=== PATIENT | male | born 1975 | race Caucasian/White ===

== ENCOUNTER 2017-02-14 14:05 | Outpatient (CLI) | payer OTHER | END 2017-02-14 14:06 | disposition home or self-care (01) | LOC: SC 14:05 | PROVIDERS: ATTEND Specialist | DX: R53.83 Other fatigue (principal); R06.83 Snoring; R51 Headache; E66.9 Obesity, unspecified; Z68.32 Body mass index [BMI] 32.0-32.9, adult | CPT/HCPCS: 99205; 99212 ==

== ENCOUNTER 2017-04-04 22:11 | Outpatient (CLI) | payer OTHER | END 2017-04-04 22:12 | disposition home or self-care (01) | LOC: SC 22:11 | PROVIDERS: ATTEND Specialist | DX: G47.33 Obstructive sleep apnea (adult) (pediatric) (principal); G47.61 Periodic limb movement disorder | CPT/HCPCS: 95810 ==

== ENCOUNTER 2017-04-30 13:54 | Outpatient (CLI) | payer OTHER | END 2017-04-30 13:55 | disposition home or self-care (01) | LOC: SC 13:54 | PROVIDERS: ATTEND Internal Medicine Pulmonary Disease | DX: G47.33 Obstructive sleep apnea (adult) (pediatric) (principal) | CPT/HCPCS: 99212; 99213 ==

== ENCOUNTER 2017-06-16 19:23 | Outpatient (CLI) | payer OTHER | END 2017-06-16 19:24 | disposition home or self-care (01) | LOC: SC 19:23 | PROVIDERS: ATTEND Internal Medicine Pulmonary Disease | DX: G47.33 Obstructive sleep apnea (adult) (pediatric) (principal); G47.61 Periodic limb movement disorder | CPT/HCPCS: 95811 ==

== ENCOUNTER 2017-07-09 14:34 | Outpatient (CLI) | payer OTHER | END 2017-07-09 14:35 | disposition home or self-care (01) | LOC: SC 14:34 | PROVIDERS: ATTEND Nurse Practitioner Family | DX: G47.33 Obstructive sleep apnea (adult) (pediatric) (principal); G47.61 Periodic limb movement disorder | CPT/HCPCS: 99214 ==

== ENCOUNTER 2017-09-04 13:10 | Outpatient (CLI) | payer OTHER | END 2017-09-04 13:11 | disposition home or self-care (01) | LOC: SC 13:10 | PROVIDERS: ATTEND Nurse Practitioner Family | DX: G47.33 Obstructive sleep apnea (adult) (pediatric) (principal) | CPT/HCPCS: 99212; 99214 ==